=== PATIENT | female | born 2005 | race Caucasian/White ===

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

== ENCOUNTER 2023-01-03 23:19 | Emergency (ER) | payer MEDICAID ==
[2023-01-03 23:42] VITALS: BP 105/85; O2SAT 100
--- NOTE | 2023-01-04 00:36 | ED Physician Documentation ---
PD HPI DYSPNEA - Stated complaint Stated Complaint: SOA - Chief complaint Chief Complaint: MHE - History obtained from History obtained from: Patient - Additional information Additional information: HPI from patient. Patient complains of anxiety. Patient states she is having "a really bad panic attack", "I could not breathe", dizziness and feeling like she might pass out. Her symptoms improved significantly while waiting this evaluation, and by the time of my HPI, patient says she still feels anxious but much improved and no longer dizzy nor short of breath. She says she has had similar episodes in the past though this episode lasted much longer than her typical panic attacks. Arina's panic attack lasted approximately 45 minutes. Onset was at approximately 10 PM arina while at home at rest while lying in bed but awake. Patient denies SI, HI, AH, VH. She feels that the trigger for this episode of panic was receiving a text informing her that her boyfriend is involved with another person. Review of Systems Cardiac: reports: Reviewed and negative Respiratory: reports: Dyspnea. denies: Cough GI: reports: Reviewed and negative : denies: Now EGA Psychiatric: reports: Anxiety. denies: Depressed, Suicidal, Homicidal, Hallucinations, Delusions PD PAST MEDICAL HISTORY - Past Medical History Past Medical History: Yes Psych: Depression, Anxiety, Bipolar disorder, Post traumatic stress disorder - Past Surgical History Past Surgical History: No - Present Medications Home Medications: Ambulatory Orders Medication Instructions Recorded Confirmed LORazepam [Ativan] 0.5 - 1 mg PO TID PRN #20 tablet 01/04/23 - Allergies Allergies/Adverse Reactions: Allergies Allergy/AdvReac Type Severity Reaction Status Date / Time Penicillins Allergy Unknown Unknown Verified 01/03/23 23:40 - Social History Does the pt smoke?: No Smoking Status: Never smoker Does the pt drink ETOH?: No Does the pt have substance abuse?: No - Immunizations Immunizations are current?: No Immunizations: TDAP >10years/unknown - POLST Patient has POLST: No PD ED PE NORMAL - Vitals Vital signs reviewed: Yes - General General: Alert and oriented X 3, No acute distress, Well developed/nourished - Cardiac Cardiac: RRR, No murmur - Respiratory Respiratory: No respiratory distress, Clear bilaterally - Neuro Neuro: Alert and oriented X 3 Eye Opening: Spontaneous Motor: Obeys Commands Verbal: Oriented GCS Score: 15 - Psych Psych: Normal mood, Normal affect Results - Vitals Vitals: Oxygen O2 Source Room air PD Medical Decision Making - ED course Complexity details: considered differential, d/w patient ED course: Patient presents for symptoms that are consistent with acute anxiety/panic attack; at the time of this evaluation, her symptoms have greatly improved without specific intervention. Emergent testing not indicated at this time. We discussed options for short-term treatment and I recommended 1mg PO lorazepam which she agrees with and this is given prior to d/c. I am electronically submitting a prescription for lorazepam 0.5 mg tablets to [facility] pharmacy in [place]. I advised the patient to seek follow-up with a primary care provider to discuss other options for long-term treatment of her anxiety. Departure - Departure Disposition: 01 Home, Self Care Clinical Impression: Panic attack Condition: Good Instructions: ED Panic Attack Prescriptions: LORazepam [Ativan] 0.5 - 1 mg PO TID PRN #20 tablet PRN Reason: Anxiety Comments: Your symptoms are consistent with anxiety/panic attack. You should follow-up with your primary care provider. If you do not have one, it would be in your best interest to establish with a local primary care provider. That way, you can follow-up with an outpatient provider who can reevaluate the situation, provide further prescriptions for medications more appropriate to long-term treatment of anxiety, possibly refer you to a mental health professional if necessary. I have electronically submitted a prescription for lorazepam to the [facility] pharmacy in [place]. This medication is only meant to be used as needed for anxiety/panic, and should only be used short-term. Forms: PCP List Discharge Date/Time: 01/04/23 01:20
[2023-01-04] MEDS: LORazepam 0.5 MG TABLET PO STA (01:09)
[2023-01-04] MEDS ORDERED: LORazepam 1 MG TABLET ONE (01:14)
== END 2023-01-04 01:20 | disposition home or self-care (01) ==
LOC: ED 23:19
DX: F41.0 Panic disorder [episodic paroxysmal anxiety] (principal)
CPT/HCPCS: 99282; 99283

== ENCOUNTER 2023-01-08 15:06 | Emergency (ER) | payer MEDICAID ==
[2023-01-08 15:39] VITALS: BP 138/86; O2SAT 100
== END 2023-01-08 16:45 | disposition left against medical advice (07) ==
LOC: ED 15:06
DX: Z53.21 Procedure and treatment not carried out due to patient leaving prior to being seen by health care provider (principal)

== ENCOUNTER 2023-05-29 00:33 | Emergency (ER) | payer MEDICAID ==
--- NOTE | 2023-05-29 00:49 | ED Physician Documentation ---
PD HPI HEENT - Stated complaint Stated Complaint: BILATERAL EAR PX/HEARING LOSS - Chief complaint Chief Complaint: Heent - History obtained from History obtained from: Patient - Additional information Additional information: HPI from patient. Patient complains of bilateral ear pain, decreased hearing. The pain and decreased hearing are more noticeable on the left than the right. Denies history of similar symptoms. She also has noted intermittent discharge from both ears. The symptoms started yesterday without specific inciting event. Review of Systems Constitutional: denies: Fever Ears: reports: Loss of hearing, Ear pain, Drainage/discharge Nose: denies: Rhinorrhea / runny nose, Congestion PD PAST MEDICAL HISTORY - Past Medical History Past Medical History: Yes Psych: Depression, Anxiety, Bipolar disorder, Post traumatic stress disorder - Past Surgical History Past Surgical History: No - Present Medications Home Medications: Ambulatory Orders Medication Instructions Recorded Confirmed Doxycycline [Vibramycin] 100 mg PO BID #13 tablet 05/29/23 - Allergies Allergies/Adverse Reactions: Allergies Allergy/AdvReac Type Severity Reaction Status Date / Time Penicillins Allergy Unknown Unknown Verified 05/29/23 00:45 - Social History Does the pt smoke?: No Smoking Status: Never smoker Does the pt drink ETOH?: No Does the pt have substance abuse?: No - Immunizations Immunizations are current?: No Immunizations: TDAP >10years/unknown - POLST Patient has POLST: No PD ED PE NORMAL - Vitals Vital signs reviewed: Yes - General General: Alert and oriented X 3, No acute distress, Well developed/nourished PD ED PE EXPANDED - HEENT HEENT: L TM red, L TM bulging, Other (bilateral external auditory canal swelling and erythema with scant discharge. left TM bulging and erythematous, normal right TM) Results - Vitals Vitals: Vital Signs - 24 hr 05/29/23 05/29/23 00:37 01:30 Temperature 36.7 C 36.9 C Heart Rate 112 H 100 Respiratory 20 16 Rate Blood Pressure 146/86 H 130/60 O2 Saturation 100 99 Oxygen O2 Source Room air PD Medical Decision Making - ED course Complexity details: considered differential, d/w patient ED course: On exam, there is obvious bilateral otitis externa. Despite this, both external auditory canals are widely patent and thus placement of ear wick is not indicated at this time. As noted above, the left TM also is bulging with significant erythema. Thus, she is given p.o. doxycycline to cover for otitis media as well as Cortisporin otic drops for the bilateral otitis externa. Return precautions reviewed. Departure - Departure Disposition: 01 Home, Self Care Clinical Impression: Otitis externa Qualifiers: Otitis externa type: swimmer's ear Chronicity: acute Laterality: bilateral Qualified Code(s): H60.333 - Swimmer's ear, bilateral Condition: Good Instructions: ED Otitis Externa Prescriptions: Doxycycline [Vibramycin] 100 mg PO BID #13 tablet Comments: You have both a right and left outer ear infection. These types of infections tend to respond very well to antibiotic drops, and thus you were given a bottle of antibiotic drops in the emergency department. Use the antibiotic drops as follows: 4 drops in each ear three times per day for one week. Tilt your head with one ear up and put the drops in the ear facing upwards. Stay in that position for 5 minutes. Then repeat these steps with the other ear. As we discussed, I am also prescribing a 1-week course of oral antibiotics. The reason for this is because of the possibility of a coexisting middle ear infection; middle ear infections respond to oral antibiotics but not the antibiotic drops. You were given the first dose of the oral antibiotic (doxycycline) in the emergency department, and I have electronically submitted a prescription for a 1-week course of the doxycycline to the [facility] pharmacy in [place]. Forms: PCP List Discharge Date/Time: 05/29/23 01:33
[2023-05-29] MEDS: DOXYCYCLINE 100 MG TABLET PO STA (01:16)
[2023-05-29] MEDS: NEOMYCIN/POLYMYX/HC OTIC DROPS EACHEAR STA (01:16)
[2023-05-29 01:37] VITALS: BP 130/60; O2SAT 99
== END 2023-05-29 01:33 | disposition home or self-care (01) ==
LOC: ED 00:33
DX: H60.333 Swimmer's ear, bilateral (principal)
CPT/HCPCS: 99282; 99283; A9270